=== PATIENT | male | born 1985 | race Caucasian/White ===

== ENCOUNTER → 2016-08-09 | Outpatient (REF) | payer BC, SELFPAY ==
[2016-08-09 19:39] LABS: URIC ACID 7.5 MG/DL (3.5-7.2)
[2016-08-12 00:07] LABS: Lyme Disease IgG/IgM Antibodie <0.91 ISR (0.00-0.90); Lyme Disease IgM Ab Quantitati <0.80 index (0.00-0.79)
== END ==
LOC: M LABDRAW1 15:51
PROVIDERS: ATTEND Physician Assistant
DX: M10.071 Idiopathic gout, right ankle and foot (principal)